=== PATIENT | female | born 1970 | race Caucasian/White ===

== ENCOUNTER 2023-07-07 07:10 | Day surgery (SDC) | payer MEDICAID ==
[~2023-07-07] VITALS: Ht 152.4 cm; Wt 63.5 kg
[2023-07-07] MEDS ORDERED: MEPERIDINE 100 MG INJ. 100 MG/ML VIAL ONE (08:08)
[2023-07-07] MEDS ORDERED: MIDAZOLAM HCL 5 MG/5 ML VIAL ONE (08:08)
[2023-07-07] MEDS ORDERED: BENZOCAINE 20% 0.5mL UD SPRAY MM ONE (09:13)
[2023-07-07 14:36] VITALS: BP_SYST 125; PULSE 57; RESP 16; TEMP 97; O2SAT 100
== END 2023-07-07 10:35 | disposition home or self-care (01) ==
LOC: SDS 07:10 → SMU 07:11 → SDS 10:35
PROVIDERS: ATTEND Internal Medicine
DX: R10.12 Left upper quadrant pain (principal); K29.50 Unspecified chronic gastritis without bleeding; K31.7 Polyp of stomach and duodenum; R10.13 Epigastric pain; E11.9 Type 2 diabetes mellitus without complications; E78.5 Hyperlipidemia, unspecified; Z79.899 Other long term (current) drug therapy
CPT/HCPCS: 43251; 43239; 99152; 82962; 88305; 88312; 88313; G0378; J2250; J2175